=== PATIENT | male | born 1950 | race Caucasian/White ===

== ENCOUNTER 2022-03-29 10:22 | Outpatient (CLI) | payer BC | END 2022-03-29 10:23 | disposition home or self-care (01) | LOC: TBSIIMAG 10:22 | PROVIDERS: ATTEND Neurological Surgery | DX: M48.54XA Collapsed vertebra, not elsewhere classified, thoracic region, initial encounter for fracture (principal); M47.814 Spondylosis without myelopathy or radiculopathy, thoracic region | CPT/HCPCS: 72072 ==